=== PATIENT | female | born 1975 | race Caucasian/White ===

== ENCOUNTER 2016-08-08 22:41 | Emergency (ER) | payer OTHER ==
[~2016-08-08] VITALS: Ht 170.1 cm; Wt 160.6 kg
[~2016-08-08 22:41] MED LIST: BACTRIM DS 8001 TA1 PO; CLARITIN10 MG PO; COMPAZINE10 MG PO; MEDROL DOSEPAK4 MG PO; PROVENTIL0.09 MG/AC IH; TRAMADOL HCL50 MG PO; ULTRAM50 MG PO; ZANTAC150 MG PO; ZITHROMAX Z PA250 MG PO
[2016-08-08] MEDS ORDERED: SEROQUEL400 M1 PO (22:51)
[2016-08-08] MEDS ORDERED: LITHIUM CARBON300 MG PO (22:51)
[2016-08-08] MEDS ORDERED: LEXAPRO20 MG PO (22:52)
[2016-08-08] MEDS ORDERED: BUTRANS20 MCG/HR TD (22:52)
[2016-08-08 23:06] LABS: BASO # 0.1 10*3/uL (0.0-0.1); BASO % 0.7 % (0.0-1.0); EOS # 0.3 10*3/uL (0.0-0.4); EOS % 3.1 % (1.0-4.0); HEMATOCRIT 38.3 % (37.0-47.0); IG # 0.1 10*3/uL (0.0-0.1); LYMPH % 24.3 % (27.0-41.0); MEAN CELL VOLUME 80.6 fl (81.0-99.0); MEAN CORPUSCULAR HGB 25.3 pg (27.0-31.0); MEAN CORPUSCULAR HGB CONC 31.3 g/dl (33.0-37.0); MEAN PLATELET VOLUME 10.6 fl (9.6-12.3); MONO # 0.8 10*3/uL (0.1-1.0); MONO % 10.3 % (3.0-9.0); PLATELET COUNT AUTOMATED 235 10*3/uL (130-400); RED BLOOD COUNT 4.75 10*6/uL (4.10-5.10); RED CELL DISTRI WIDTH 14.6 % (0-14.5); WHITE BLOOD COUNT 8.2 10*3/uL (4.8-10.8)
[2016-08-08 23:19] LABS: PROTHROMBIN TIME 10.4 SECONDS (9.0-12.4)
[2016-08-08 23:24] LABS: ALBUMIN 3.2 gm/dl (3.1-4.5); ALKALINE PHOSPHATASE 71 U/L (45-117); BILIRUBIN, TOTAL 0.3 mg/dl (0.2-1.0); BUN 14 mg/dl (7-24); CARBON DIOXIDE 24 mmol/L (21-32); CHLORIDE 108 mmol/L (98-107); EST GLOM FILT AFRICAN AMERICAN 59 ml/min; GLUCOSE 89 mg/dL (65-99); MAGNESIUM 2.3 mg/dL (1.5-2.1); SGOT/AST 28 IU/L (3-35); SGPT/ALT 35 U/L (12-78); SODIUM 142 mmol/L (136-145); TOTAL PROTEIN 7.4 gm/dL (6.4-8.2)
[2016-08-08 23:29] LABS: TROPONIN I < 0.015 ng/ml (<0.045)
[2016-08-09] MEDS ORDERED: PREDNISONE20 M1 PO (00:13)
[2016-08-09] MEDS ORDERED: CEFDINIR300 MG PO (00:13)
[2016-08-09] MEDS ORDERED: DUONEB 3 MG/3 ML3 M1 INH (00:28)
== END 2016-08-09 00:29 | disposition home or self-care (01) ==
LOC: ED 22:41
PROVIDERS: Emergency Medicine Emergency Medical Services
DX: J20.9 Acute bronchitis, unspecified (principal); R07.89 Other chest pain; Z88.6 Allergy status to analgesic agent; Z79.899 Other long term (current) drug therapy

== ENCOUNTER 2017-10-12 17:02 | Emergency (ER) | payer OTHER ==
[~2017-10-12] VITALS: Ht 170.1 cm; Wt 158.8 kg
[~2017-10-12 17:02] MED LIST changes: +BUTRANS20 MCG/HR TD; +CEFDINIR300 MG PO; +DUONEB 3 MG/3 ML3 M1 INH; +LEXAPRO20 MG PO; +LITHIUM CARBON300 MG PO; +PREDNISONE20 M1 PO; +SEROQUEL400 M1 PO
[2017-10-12 17:41] LABS: BILIRUBIN NEGATIVE (NEGATIVE); BLOOD TRACE-INTACT (NEGATIVE); CLARITY SL CLOUDY (CLEAR); COLOR YELLOW (YELLOW); GLUCOSE NEGATIVE (NEGATIVE); KETONE NEGATIVE (NEGATIVE); LEUKO ESTERASE NEGATIVE (NEGATIVE); NITRITE NEGATIVE (NEGATIVE); UROBILINOGEN 0.2 E.U./dl (0.2-1.0)
[2017-10-12 17:54] LABS: EPITHELIAL CELLS 20-25
[2017-10-12 17:55] LABS: BACTERIA TRACE
[2017-10-12 18:10] LABS: BASO # 0.1 10*3/uL (0.0-0.1); BASO % 0.5 % (0.0-1.0); EOS # 0.4 10*3/uL (0.0-0.4); EOS % 2.8 % (1.0-4.0); HEMATOCRIT 37.6 % (37.0-47.0); HEMOGLOBIN 11.4 g/dl (12.0-16.0); LYMPH # 3.4 10*3/uL (1.3-4.4); LYMPH % 26.7 % (27.0-41.0); MEAN CELL VOLUME 78.2 fl (81.0-99.0); MEAN CORPUSCULAR HGB 23.7 pg (27.0-31.0); MEAN CORPUSCULAR HGB CONC 30.3 g/dl (33.0-37.0); MONO # 0.9 10*3/uL (0.1-1.0); NEUT # 8.1 10*3/uL (2.3-7.9); NEUT % 62.7 % (47.0-73.0); PLATELET COUNT AUTOMATED 286 10*3/uL (130-400); RED BLOOD COUNT 4.81 10*6/uL (4.10-5.10); RED CELL DISTRI WIDTH 15.8 % (0-14.5); WHITE BLOOD COUNT 12.9 10*3/uL (4.8-10.8)
[2017-10-12 18:24] LABS: ALBUMIN 3.2 gm/dl (3.1-4.5); ALKALINE PHOSPHATASE 73 U/L (45-117); BUN 11 mg/dl (7-24); CHLORIDE 108 mmol/L (98-107); CREATININE 1.09 mg/dL (0.55-1.02); POTASSIUM 3.9 mmol/L (3.5-5.1); SGOT/AST 15 IU/L (3-35); SGPT/ALT 19 U/L (12-78); SODIUM 141 mmol/L (136-145); TOTAL PROTEIN 8.3 gm/dL (6.4-8.2)
== END 2017-10-12 23:32 | disposition short-term general hospital (02) ==
LOC: ED 17:02
PROVIDERS: Nurse Practitioner
DX: A41.9 Sepsis, unspecified organism (principal); L02.211 Cutaneous abscess of abdominal wall; R19.7 Diarrhea, unspecified; Z88.6 Allergy status to analgesic agent; Z79.899 Other long term (current) drug therapy

== ENCOUNTER 2018-06-14 16:13 | Emergency (ER) | payer OTHER ==
[~2018-06-14] VITALS: Ht 170.1 cm; Wt 167.8 kg
[2018-06-14 17:08] LABS: BASO # 0.1 10*3/uL (0.0-0.1); BASO % 0.6 % (0.0-1.0); EOS # 0.3 10*3/uL (0.0-0.4); EOS % 3.5 % (1.0-4.0); HEMATOCRIT 40.1 % (37.0-47.0); HEMOGLOBIN 11.9 g/dl (12.0-16.0); LYMPH # 3.1 10*3/uL (1.3-4.4); LYMPH % 32.7 % (27.0-41.0); MEAN CELL VOLUME 73.4 fl (81.0-99.0); MEAN CORPUSCULAR HGB 21.8 pg (27.0-31.0); MEAN CORPUSCULAR HGB CONC 29.7 g/dl (33.0-37.0); MEAN PLATELET VOLUME 10.9 fl (9.6-12.3); MONO # 0.8 10*3/uL (0.1-1.0); MONO % 8.1 % (3.0-9.0); NEUT # 5.2 10*3/uL (2.3-7.9); NEUT % 54.6 % (47.0-73.0); PLATELET COUNT AUTOMATED 263 10*3/uL (130-400); RED BLOOD COUNT 5.46 10*6/uL (4.10-5.10); RED CELL DISTRI WIDTH 16.7 % (0-14.5); WHITE BLOOD COUNT 9.6 10*3/uL (4.8-10.8)
[2018-06-14 17:38] LABS: CREATININE 1.27 mg/dL (0.55-1.02); POTASSIUM 4.2 mmol/L (3.5-5.1); TOTAL PROTEIN 8.1 gm/dL (6.4-8.2)
[2018-06-14] MEDS ORDERED: PREDNISONE50 MG PO (18:23)
[2018-06-14] MEDS ORDERED: ZITHROMAX250 MG PO (18:23)
[2018-06-14] MEDS ORDERED: ROBITUSSIN DM 105 ML PO (18:23)
== END 2018-06-14 18:30 | disposition home or self-care (01) ==
LOC: ED 16:13
PROVIDERS: Nurse Practitioner Family
DX: J20.9 Acute bronchitis, unspecified (principal); R10.9 Unspecified abdominal pain; F17.200 Nicotine dependence, unspecified, uncomplicated; Z88.6 Allergy status to analgesic agent; Z79.899 Other long term (current) drug therapy; Z90.710 Acquired absence of both cervix and uterus

== ENCOUNTER 2024-06-14 15:57 | Emergency (ER) | payer OTHER ==
[~2024-06-14] VITALS: Ht 170.1 cm; Wt 146.1 kg
[~2024-06-14 15:57] MED LIST changes: +PREDNISONE50 MG PO; +ROBITUSSIN DM 105 ML PO; +ZITHROMAX250 MG PO
[2024-06-14] MEDS ORDERED: SODIUM CHLORIDE 0.9% 1,000 ML IV ONE (16:30)
[2024-06-14] MEDS ORDERED: HYDROmorphONE Hydrochloride 0.5 MG/0.5 ML SYRINGE IV ONE ×2 (16:30→20:25)
[2024-06-14] MEDS ORDERED: Ondansetron Hydrochloride 4 MG/2 ML VIAL IV ONE (16:30)
[2024-06-14 16:56] LABS: BASO # 0.1 10*3/uL (0.0-0.1); BASO % 0.5 % (0.0-1.0); EOS # 0.3 10*3/uL (0.0-0.4); EOS % 2.8 % (1.0-4.0); HEMATOCRIT 43.2 % (37.0-47.0); MEAN CELL VOLUME 77.6 fl (81.0-99.0); MEAN CORPUSCULAR HGB 23.5 pg (27.0-31.0); MEAN CORPUSCULAR HGB CONC 30.3 g/dl (33.0-37.0); MONO # 0.8 10*3/uL (0.1-1.0); MONO % 6.8 % (3.0-9.0); NEUT # 6.7 10*3/uL (2.3-7.9); NEUT % 58.1 % (47.0-73.0); PLATELET COUNT AUTOMATED 256 10*3/uL (130-400); RED BLOOD COUNT 5.57 10*6/uL (4.10-5.10); RED CELL DISTRI WIDTH 15.7 % (0-14.5); WHITE BLOOD COUNT 11.5 10*3/uL (4.8-10.8)
[2024-06-14 17:17] LABS: ALKALINE PHOSPHATASE 80 U/L (46-116); BUN 14 mg/dl (9-23); CHLORIDE 106 mmol/L (98-107); POTASSIUM 3.8 mmol/L (3.4-5.1); SGPT/ALT 11 U/L (5-49); TOTAL PROTEIN 7.7 gm/dL (6.0-8.0)
[2024-06-14] MEDS ORDERED: IOHEXOL 300 MG/ML 100 ML VIAL IV ONE (17:30)
[2024-06-14] MEDS ORDERED: Vancomycin Hydrochloride 250 ML IV ONE (19:15)
[2024-06-14] MEDS ORDERED: Piperacillin Sodium/Tazobact 50 ML IV ONE (19:15)
[2024-06-14] MEDS ORDERED: VIBRAMYCIN100 MG PO (21:15)
== END 2024-06-14 21:31 | disposition left against medical advice (07) ==
LOC: ED 15:57
PROVIDERS: Nurse Practitioner Family
DX: L03.311 Cellulitis of abdominal wall (principal); Z53.29 Procedure and treatment not carried out because of patient's decision for other reasons; Z88.8 Allergy status to other drugs, medicaments and biological substances; Z98.890 Other specified postprocedural states

== ENCOUNTER 2024-07-15 15:28 | Emergency (ER) | payer OTHER ==
[~2024-07-15] VITALS: Ht 170.1 cm; Wt 146.1 kg
[~2024-07-15 15:28] MED LIST changes: +VIBRAMYCIN100 MG PO
[2024-07-15] MEDS ORDERED: Metoclopramide Hydrochloride 10 MG/2 ML VIAL IV ONE (17:20)
[2024-07-15] MEDS ORDERED: SODIUM CHLORIDE 0.9% 1,000 ML IV ONE (17:20)
[2024-07-15] MEDS ORDERED: diphenhydrAMINE hydrochloride 50 MG/ML VIAL IV ONE (17:20)
[2024-07-15] MEDS ORDERED: FAMOTIDINE 50 ML IV ONE (17:20)
[2024-07-15 17:37] LABS: BASO # 0.1 10*3/uL (0.0-0.1); BASO % 0.6 % (0.0-1.0); EOS # 0.4 10*3/uL (0.0-0.4); EOS % 2.9 % (1.0-4.0); MEAN CELL VOLUME 79.1 fl (81.0-99.0); MEAN CORPUSCULAR HGB 23.7 pg (27.0-31.0); MEAN PLATELET VOLUME 9.9 fl (9.6-12.3); MONO % 8.2 % (3.0-9.0); NEUT # 7.3 10*3/uL (2.3-7.9); NEUT % 58.8 % (47.0-73.0); PLATELET COUNT AUTOMATED 286 10*3/uL (130-400); RED BLOOD COUNT 5.56 10*6/uL (4.10-5.10); RED CELL DISTRI WIDTH 15.9 % (0-14.5); WHITE BLOOD COUNT 12.5 10*3/uL (4.8-10.8)
[2024-07-15 17:52] LABS: BUN 15 mg/dl (9-23); CHLORIDE 108 mmol/L (98-107); POTASSIUM 3.9 mmol/L (3.4-5.1)
[2024-07-15 17:55] LABS: BILIRUBIN Negative (Negative); BLOOD 1+ (Negative); CLARITY Turbid (Clear); COLOR Yellow (Yellow); GLUCOSE Negative (Negative); KETONE Negative (Negative); LEUKO ESTERASE 2+ (Negative); NITRITE Positive (Negative); PH 5.5 (4.5-8.0); SPECIFIC GRAVITY 1.025 (1.001-1.030); UROBILINOGEN 0.2 E.U./dl (0.0-1.0)
[2024-07-15 18:02] LABS: BACTERIA 3+; EPITHELIAL CELLS TNTC; WBC 16-20 wbc/hpf (0-5)
[2024-07-15] MEDS ORDERED: cefTRIAXone Sodium 1 GM/10 ML SYR IV ONE (18:10)
[2024-07-15] MEDS ORDERED: Ondansetron4 MG PO (18:13)
[2024-07-15] MEDS ORDERED: SEPTDS PO (18:13)
[2024-07-15] MEDS ORDERED: MORPHINE Sulfate 2 MG/ML SYR IV ONE (18:15)
[2024-07-15] MEDS ORDERED: TRAMADOL HCL50 MG PO (18:36)
== END 2024-07-15 18:57 | disposition home or self-care (01) ==
LOC: ED 15:28
PROVIDERS: Emergency Medicine
DX: N39.0 Urinary tract infection, site not specified (principal); R11.2 Nausea with vomiting, unspecified; R19.7 Diarrhea, unspecified; M54.50 Low back pain, unspecified; Z88.6 Allergy status to analgesic agent; Z79.899 Other long term (current) drug therapy

== ENCOUNTER 2024-07-17 12:50 | Emergency (ER) | payer OTHER ==
[~2024-07-17] VITALS: Ht 170.1 cm; Wt 149.7 kg
[~2024-07-17 12:50] MED LIST changes: +Ondansetron4 MG PO; +SEPTDS PO
[2024-07-17] MEDS ORDERED: ABILIFY AS960 MG/3.2 IM (12:57)
[2024-07-17] MEDS ORDERED: PAROXETINE HCL40 MG PO (12:58)
[2024-07-17] MEDS ORDERED: LAMOTRIGINE25 M1 PO (12:58)
[2024-07-17] MEDS ORDERED: IOHEXOL 300 MG/ML 100 ML VIAL IV ONE (13:35)
[2024-07-17] MEDS ORDERED: Metoclopramide Hydrochloride 10 MG/2 ML VIAL IV ONE (13:55)
[2024-07-17] MEDS ORDERED: diphenhydrAMINE hydrochloride 50 MG/ML VIAL IV ONE (13:55)
[2024-07-17] MEDS ORDERED: SODIUM CHLORIDE 0.9% 1,000 ML IV ONE (14:05)
[2024-07-17 14:15] LABS: BASO # 0.1 10*3/uL (0.0-0.1); BASO % 0.5 % (0.0-1.0); EOS # 0.4 10*3/uL (0.0-0.4); EOS % 4.1 % (1.0-4.0); HEMATOCRIT 41.9 % (37.0-47.0); MEAN CELL VOLUME 78.6 fl (81.0-99.0); MEAN CORPUSCULAR HGB 23.8 pg (27.0-31.0); MEAN CORPUSCULAR HGB CONC 30.3 g/dl (33.0-37.0); MEAN PLATELET VOLUME 9.8 fl (9.6-12.3); MONO # 0.7 10*3/uL (0.1-1.0); MONO % 7.7 % (3.0-9.0); NEUT # 5.4 10*3/uL (2.3-7.9); NEUT % 56.2 % (47.0-73.0); PLATELET COUNT AUTOMATED 261 10*3/uL (130-400); RED BLOOD COUNT 5.33 10*6/uL (4.10-5.10); RED CELL DISTRI WIDTH 15.6 % (0-14.5); WHITE BLOOD COUNT 9.6 10*3/uL (4.8-10.8)
[2024-07-17 14:29] LABS: ACT PARTIAL THROMBO TIME 26.4 SECONDS (20.0-32.1)
[2024-07-17 14:36] LABS: ALKALINE PHOSPHATASE 90 U/L (46-116); BUN 19 mg/dl (9-23); CHLORIDE 108 mmol/L (98-107); POTASSIUM 4.1 mmol/L (3.4-5.1); SGPT/ALT 13 U/L (5-49); TOTAL PROTEIN 7.8 gm/dL (6.0-8.0)
[2024-07-17] MEDS ORDERED: MORPHINE Sulfate 2 MG/ML SYR IV ONE (17:10)
[2024-07-17] MEDS ORDERED: DAKIN'S473 M1 T (17:48)
== END 2024-07-17 17:57 | disposition home or self-care (01) ==
LOC: ED 12:50
PROVIDERS: Internal Medicine
DX: T81.41XA Infection following a procedure, superficial incisional surgical site, initial encounter (principal); B99.8 Other infectious disease; R10.9 Unspecified abdominal pain; F17.200 Nicotine dependence, unspecified, uncomplicated; Z88.6 Allergy status to analgesic agent; Z79.899 Other long term (current) drug therapy; Y83.8 Other surgical procedures as the cause of abnormal reaction of the patient, or of later complication, without mention of misadventure at the time of the procedure; Y92.89 Other specified places as the place of occurrence of the external cause

== ENCOUNTER 2024-08-30 16:25 | Observation (INO) | payer OTHER ==
[~2024-08-30] VITALS: Ht 170.1 cm; Wt 150.6 kg
[~2024-08-30 16:25] MED LIST changes: +ABILIFY AS960 MG/3.2 IM; +DAKIN'S473 M1 T; +ERTAPENEM1 GM IV; +LAMOTRIGINE25 M1 PO; +PAROXETINE HCL40 MG PO; +PERCOCET 5-3251 EACH PO
[2024-08-30 16:43] VITALS: BP 123/90
[2024-08-30 19:26] LABS: BASO # 0.1 10*3/uL (0.0-0.1); BASO % 0.5 % (0.0-1.0); EOS # 0.5 10*3/uL (0.0-0.4); EOS % 3.6 % (1.0-4.0); HEMATOCRIT 41.6 % (37.0-47.0); MEAN CELL VOLUME 79.7 fl (81.0-99.0); MEAN CORPUSCULAR HGB 24.7 pg (27.0-31.0); MEAN PLATELET VOLUME 10.3 fl (9.6-12.3); MONO # 0.9 10*3/uL (0.1-1.0); MONO % 6.9 % (3.0-9.0); NEUT # 6.5 10*3/uL (2.3-7.9); NEUT % 50.5 % (47.0-73.0); PLATELET COUNT AUTOMATED 262 10*3/uL (130-400); RED BLOOD COUNT 5.22 10*6/uL (4.10-5.10); RED CELL DISTRI WIDTH 15.5 % (0-14.5)
[2024-08-30 19:44] LABS: BUN 15 mg/dl (9-23); CHLORIDE 107 mmol/L (98-107); POTASSIUM 4.1 mmol/L (3.4-5.1)
[2024-08-30] MEDS ORDERED: Acetaminophen/Oxycodone 5 MG/325 MG TABLET PO PRN (21:40)
[2024-08-30 22:50] VITALS: BP 104/54
[2024-08-31 06:12] VITALS: BP 103/44
[2024-08-31 08:51] VITALS: BP 128/90
[2024-08-31] MEDS ORDERED: IOHEXOL 240 MG/ML 20 ML SOL ONE (09:14)
[2024-08-31] MEDS ORDERED: HEPARIN SODIUM 300 UNITS/3 ML SYR IV ONE (09:45)
[2024-08-31] MEDS ORDERED: Sodium Hypochlorite 0.5% (DAKIN'S) 480 ML SOL T SCH (10:00)
[2024-08-31] MEDS ORDERED: PARoxetine Hydrochloride 20 MG TAB PO SCH (10:00)
[2024-08-31] MEDS ORDERED: LAMOTRIGINE 25 MG TAB PO SCH (10:00)
[2024-08-31 10:36] VITALS: BP 98/58
== END 2024-08-31 11:41 | disposition home health service (06) ==
LOC: ED 16:25 → EDHOLD 21:15
PROVIDERS: Internal Medicine; ADMIT Internal Medicine; ATTEND Internal Medicine
DX: T82.9XXA Unspecified complication of cardiac and vascular prosthetic device, implant and graft, initial encounter (principal); L03.311 Cellulitis of abdominal wall; D72.829 Elevated white blood cell count, unspecified; F32.9 Major depressive disorder, single episode, unspecified; F41.1 Generalized anxiety disorder; F17.200 Nicotine dependence, unspecified, uncomplicated; Z79.899 Other long term (current) drug therapy; Z68.41 Body mass index [BMI] 40.0-44.9, adult; Y92.89 Other specified places as the place of occurrence of the external cause

== ENCOUNTER 2024-09-09 10:25 | Emergency (ER) | payer OTHER ==
[~2024-09-09] VITALS: Ht 170.1 cm; Wt 151.0 kg
[2024-09-09] MEDS ORDERED: SODIUM CHLORIDE 0.9% 1,000 ML IV ONE (10:45)
[2024-09-09] MEDS ORDERED: diphenhydrAMINE hydrochloride 50 MG/ML VIAL IV ONE (10:45)
[2024-09-09] MEDS ORDERED: MORPHINE Sulfate 2 MG/ML SYR IV ONE (10:45)
[2024-09-09] MEDS ORDERED: Metoclopramide Hydrochloride 10 MG/2 ML VIAL IV ONE (10:45)
[2024-09-09 11:27] LABS: BASO # 0.1 10*3/uL (0.0-0.1); BASO % 0.8 % (0.0-1.0); EOS # 0.3 10*3/uL (0.0-0.4); EOS % 3.8 % (1.0-4.0); HEMATOCRIT 40.5 % (37.0-47.0); MEAN CELL VOLUME 79.9 fl (81.0-99.0); MEAN CORPUSCULAR HGB 24.9 pg (27.0-31.0); MEAN CORPUSCULAR HGB CONC 31.1 g/dl (33.0-37.0); MEAN PLATELET VOLUME 9.7 fl (9.6-12.3); MONO # 0.6 10*3/uL (0.1-1.0); NEUT # 4.2 10*3/uL (2.3-7.9); NEUT % 53.7 % (47.0-73.0); PLATELET COUNT AUTOMATED 195 10*3/uL (130-400); RED BLOOD COUNT 5.07 10*6/uL (4.10-5.10); RED CELL DISTRI WIDTH 15.1 % (0-14.5); WHITE BLOOD COUNT 7.9 10*3/uL (4.8-10.8)
[2024-09-09 11:48] LABS: ALKALINE PHOSPHATASE 90 U/L (46-116); BUN 12 mg/dl (9-23); CHLORIDE 107 mmol/L (98-107); LIPASE 38 U/L (12-53); POTASSIUM 3.8 mmol/L (3.4-5.1); SGPT/ALT 17 U/L (5-49); TOTAL PROTEIN 7.2 gm/dL (6.0-8.0)
== END 2024-09-09 12:28 | disposition home or self-care (01) ==
LOC: ED 10:25
PROVIDERS: Emergency Medicine
DX: R10.30 Lower abdominal pain, unspecified (principal); R11.2 Nausea with vomiting, unspecified; R19.7 Diarrhea, unspecified; F32.A Depression, unspecified; F41.9 Anxiety disorder, unspecified; Z88.6 Allergy status to analgesic agent; Z79.899 Other long term (current) drug therapy; Z98.890 Other specified postprocedural states; Z90.710 Acquired absence of both cervix and uterus; Z87.891 Personal history of nicotine dependence

== ENCOUNTER 2024-09-23 13:14 | Emergency (ER) | payer OTHER ==
[~2024-09-23] VITALS: Ht 170.1 cm; Wt 151.0 kg
[2024-09-23] MEDS ORDERED: Ondansetron Hydrochloride 4 MG TAB PO ONE (14:55)
[2024-09-23 15:06] LABS: BASO # 0.1 10*3/uL (0.0-0.1); BASO % 0.9 % (0.0-1.0); EOS # 0.3 10*3/uL (0.0-0.4); EOS % 4.1 % (1.0-4.0); HEMATOCRIT 42.4 % (37.0-47.0); MEAN CELL VOLUME 80.5 fl (81.0-99.0); MEAN CORPUSCULAR HGB CONC 31.1 g/dl (33.0-37.0); MONO # 0.6 10*3/uL (0.1-1.0); MONO % 7.9 % (3.0-9.0); NEUT # 3.9 10*3/uL (2.3-7.9); NEUT % 48.1 % (47.0-73.0); PLATELET COUNT AUTOMATED 229 10*3/uL (130-400); RED BLOOD COUNT 5.27 10*6/uL (4.10-5.10); RED CELL DISTRI WIDTH 14.9 % (0-14.5); WHITE BLOOD COUNT 8.1 10*3/uL (4.8-10.8)
[2024-09-23 15:25] LABS: BUN 15 mg/dl (9-23); CHLORIDE 105 mmol/L (98-107); POTASSIUM 4.1 mmol/L (3.4-5.1)
== END 2024-09-23 16:09 | disposition home or self-care (01) ==
LOC: ED 13:14
PROVIDERS: Physician Assistant Medical
DX: R07.2 Precordial pain (principal); R06.02 Shortness of breath; L03.311 Cellulitis of abdominal wall; F41.9 Anxiety disorder, unspecified; F32.A Depression, unspecified; Z48.02 Encounter for removal of sutures; Z88.6 Allergy status to analgesic agent; Z79.899 Other long term (current) drug therapy; Z98.890 Other specified postprocedural states; Z90.710 Acquired absence of both cervix and uterus; Z87.891 Personal history of nicotine dependence; Z95.828 Presence of other vascular implants and grafts

== ENCOUNTER 2024-10-01 19:29 | Emergency (ER) | payer OTHER ==
[~2024-10-01] VITALS: Ht 170.2 cm; Wt 151.0 kg
[2024-10-01] MEDS ORDERED: diphenhydrAMINE hydrochloride 25 MG CAP PO ONE (21:10)
[2024-10-01] MEDS ORDERED: TRIAMCINOLONE ACETONIDE 15 GM TUBE T ONE (21:10)
[2024-10-01] MEDS ORDERED: Ondansetron Hydrochloride 4 MG TAB SL ONE (21:10)
[2024-10-01] MEDS ORDERED: methylPREDNISolone sod succ 125 MG VIAL IM ONE (21:10)
[2024-10-01] MEDS ORDERED: [UNRECOGNIZED DRUG - OTHER] T ONE (22:00)
[2024-10-01] MEDS ORDERED: MEDROL DOSEPAK4 MG PO (22:11)
[2024-10-01] MEDS ORDERED: FAMOTIDINE 20 MG TAB PO ONE (22:25)
== END 2024-10-01 22:36 | disposition home or self-care (01) ==
LOC: ED 19:29
DX: T78.49XA Other allergy, initial encounter (principal); Z88.6 Allergy status to analgesic agent; Z79.899 Other long term (current) drug therapy; Z98.890 Other specified postprocedural states; Z90.711 Acquired absence of uterus with remaining cervical stump; Z90.49 Acquired absence of other specified parts of digestive tract; Z87.891 Personal history of nicotine dependence; X58.XXXA Exposure to other specified factors, initial encounter

== ENCOUNTER 2024-10-20 13:44 | Emergency (ER) | payer OTHER ==
[~2024-10-20] VITALS: Ht 170.1 cm; Wt 151.0 kg
[2024-10-20] MEDS ORDERED: Metoclopramide Hydrochloride 10 MG/2 ML VIAL IV ONE (14:00)
[2024-10-20] MEDS ORDERED: diphenhydrAMINE hydrochloride 50 MG/ML VIAL IV ONE (14:00)
[2024-10-20] MEDS ORDERED: SODIUM CHLORIDE 0.9% 1,000 ML IV ONE ×2 (14:00→14:27)
[2024-10-20 14:23] LABS: BASO # 0.1 10*3/uL (0.0-0.1); BASO % 0.8 % (0.0-1.0); EOS # 0.3 10*3/uL (0.0-0.4); EOS % 2.9 % (1.0-4.0); MEAN CELL VOLUME 81.2 fl (81.0-99.0); MEAN CORPUSCULAR HGB 25.1 pg (27.0-31.0); MEAN PLATELET VOLUME 10.3 fl (9.6-12.3); MONO # 0.6 10*3/uL (0.1-1.0); MONO % 6.4 % (3.0-9.0); NEUT # 5.3 10*3/uL (2.3-7.9); NEUT % 59.1 % (47.0-73.0); NUCLEATED RED BLOOD CELL 0.0 % (0.0-0.0); NUCLEATED RED BLOOD CELL 0.0 10*3/uL (0.0-0.0); PLATELET COUNT AUTOMATED 220 10*3/uL (130-400); RED CELL DISTRI WIDTH 15.0 % (0-14.5)
[2024-10-20] MEDS ORDERED: diphenhydrAMINE hydrochloride 50 MG/ML VIAL ONE (14:26)
[2024-10-20] MEDS ORDERED: Metoclopramide Hydrochloride 10 MG/2 ML VIAL ONE (14:27)
[2024-10-20 14:52] LABS: BUN 16 mg/dl (9-23)
== END 2024-10-20 16:17 | disposition home or self-care (01) ==
LOC: ED 13:44
PROVIDERS: Emergency Medicine
DX: R10.84 Generalized abdominal pain (principal); R11.2 Nausea with vomiting, unspecified; R19.7 Diarrhea, unspecified; Z88.6 Allergy status to analgesic agent; Z79.899 Other long term (current) drug therapy; Z90.710 Acquired absence of both cervix and uterus; Z90.49 Acquired absence of other specified parts of digestive tract; Z87.891 Personal history of nicotine dependence

== ENCOUNTER 2024-12-14 10:54 | Emergency (ER) | payer OTHER ==
[~2024-12-14] VITALS: Ht 170.1 cm; Wt 155.6 kg
[2024-12-14] MEDS ORDERED: Ondansetron Hydrochloride 4 MG/2 ML VIAL IV ONE (11:15)
[2024-12-14] MEDS ORDERED: SODIUM CHLORIDE 0.9% 500 ML IV ONE (11:15)
[2024-12-14] MEDS ORDERED: IOHEXOL 300 MG/ML 100 ML VIAL IV ONE (11:20)
[2024-12-14 12:00] LABS: BASO # 0.1 10*3/uL (0.0-0.1); BASO % 0.8 % (0.0-1.0); EOS # 0.2 10*3/uL (0.0-0.4); EOS % 2.3 % (1.0-4.0); MEAN CELL VOLUME 81.7 fl (81.0-99.0); MEAN CORPUSCULAR HGB 25.8 pg (27.0-31.0); MEAN PLATELET VOLUME 9.8 fl (9.6-12.3); MONO # 0.7 10*3/uL (0.1-1.0); MONO % 6.6 % (3.0-9.0); NEUT # 5.5 10*3/uL (2.3-7.9); NEUT % 55.1 % (47.0-73.0); NUCLEATED RED BLOOD CELL 0.0 % (0.0-0.0); NUCLEATED RED BLOOD CELL 0.0 10*3/uL (0.0-0.0); PLATELET COUNT AUTOMATED 222 10*3/uL (130-400); RED CELL DISTRI WIDTH 14.6 % (0-14.5)
[2024-12-14] MEDS ORDERED: Ondansetron Hydrochloride 4 MG TAB SL ONE (12:15)
[2024-12-14 12:28] LABS: BUN 15 mg/dl (9-23); SGPT/ALT 16 U/L (5-49)
[2024-12-14] MEDS ORDERED: COMPAZINE10 M1 PO (14:03)
[2024-12-14] MEDS ORDERED: Acetaminophen/Oxycodone 5 MG/325 MG TABLET PO ONE (14:05)
== END 2024-12-14 14:21 | disposition home or self-care (01) ==
LOC: ED 10:54
PROVIDERS: Emergency Medicine
DX: S31.109A Unspecified open wound of abdominal wall, unspecified quadrant without penetration into peritoneal cavity, initial encounter (principal); G89.29 Other chronic pain; R10.30 Lower abdominal pain, unspecified; R11.2 Nausea with vomiting, unspecified; E66.01 Morbid (severe) obesity due to excess calories; F17.200 Nicotine dependence, unspecified, uncomplicated; Z98.890 Other specified postprocedural states; Z88.6 Allergy status to analgesic agent; Z79.899 Other long term (current) drug therapy; Z90.710 Acquired absence of both cervix and uterus; Z90.49 Acquired absence of other specified parts of digestive tract; Z68.30 Body mass index [BMI] 30.0-30.9, adult; X58.XXXA Exposure to other specified factors, initial encounter; Y93.89 Activity, other specified; Y92.89 Other specified places as the place of occurrence of the external cause; Y99.8 Other external cause status

== ENCOUNTER 2025-01-17 10:11 | Emergency (ER) | payer SELFPAY ==
[~2025-01-17] VITALS: Ht 170.1 cm; Wt 156.5 kg
[~2025-01-17 10:11] MED LIST changes: +COMPAZINE10 M1 PO
[2025-01-17] MEDS ORDERED: SODIUM CHLORIDE 0.9% 500 ML IV ONE (10:35)
[2025-01-17] MEDS ORDERED: Ondansetron Hydrochloride 4 MG/2 ML VIAL IV ONE (10:40)
[2025-01-17 10:57] LABS: BASO # 0.1 10*3/uL (0.0-0.1); BASO % 0.5 % (0.0-1.0); EOS # 0.3 10*3/uL (0.0-0.4); EOS % 2.6 % (1.0-4.0); MEAN CELL VOLUME 84.1 fl (81.0-99.0); MEAN CORPUSCULAR HGB 26.2 pg (27.0-31.0); MEAN PLATELET VOLUME 9.9 fl (9.6-12.3); MONO # 0.7 10*3/uL (0.1-1.0); MONO % 6.8 % (3.0-9.0); NEUT # 5.6 10*3/uL (2.3-7.9); NEUT % 56.9 % (47.0-73.0); NUCLEATED RED BLOOD CELL 0.0 % (0.0-0.0); NUCLEATED RED BLOOD CELL 0.0 10*3/uL (0.0-0.0); PLATELET COUNT AUTOMATED 219 10*3/uL (130-400); RED CELL DISTRI WIDTH 14.1 % (0-14.5)
[2025-01-17 11:29] LABS: BUN 12 mg/dl (9-23); SGPT/ALT 38 U/L (5-49)
[2025-01-17] MEDS ORDERED: Ondansetron4 MG PO (12:06)
[2025-01-17] MEDS ORDERED: HYDROCODONE-AC1 EAC1 PO (12:06)
== END 2025-01-17 12:22 | disposition home or self-care (01) ==
LOC: ED 10:11
PROVIDERS: Emergency Medicine
DX: R10.30 Lower abdominal pain, unspecified (principal); R11.2 Nausea with vomiting, unspecified; R10.84 Generalized abdominal pain; R19.7 Diarrhea, unspecified; F17.210 Nicotine dependence, cigarettes, uncomplicated; Z98.890 Other specified postprocedural states; Z90.49 Acquired absence of other specified parts of digestive tract; Z90.721 Acquired absence of ovaries, unilateral; Z88.1 Allergy status to other antibiotic agents

== ENCOUNTER 2025-02-24 12:29 | Emergency (ER) | payer OTHER ==
[~2025-02-24] VITALS: Ht 170.1 cm; Wt 155.6 kg
[~2025-02-24 12:29] MED LIST changes: +HYDROCODONE-AC1 EAC1 PO
[2025-02-24] MEDS ORDERED: Dexamethasone Sodium Phospha 20 MG/5 ML VIAL IM ONE (13:05)
[2025-02-24] MEDS ORDERED: diazePAM 5 MG TAB PO ONE (13:05)
[2025-02-24] MEDS ORDERED: Acetaminophen/Oxycodone 5 MG/325 MG TABLET PO ONE (13:05)
[2025-02-24] MEDS ORDERED: METHOCARBAMOL750 M1 PO (13:09)
[2025-02-24] MEDS ORDERED: PREDNISONE20 M1 PO (13:09)
[2025-02-24] MEDS ORDERED: Ondansetron Hydrochloride 4 MG TAB PO ONE (13:10)
== END 2025-02-24 13:35 | disposition home or self-care (01) ==
LOC: ED 12:29
DX: M54.32 Sciatica, left side (principal); F17.210 Nicotine dependence, cigarettes, uncomplicated; Z98.890 Other specified postprocedural states; Z90.49 Acquired absence of other specified parts of digestive tract; Z90.710 Acquired absence of both cervix and uterus; Z90.721 Acquired absence of ovaries, unilateral; Z88.1 Allergy status to other antibiotic agents